=== PATIENT | male | born 1955 | race Caucasian/White ===

== ENCOUNTER 2023-11-29 13:20 | Outpatient (CLI) | payer MEDICARE, MEDICAID | END 2023-11-29 23:59 | disposition home or self-care (01) | LOC: RAD 13:20 | PROVIDERS: ATTEND Radiology Radiation Oncology | DX: R13.10 Dysphagia, unspecified (principal); R49.0 Dysphonia; R47.1 Dysarthria and anarthria; Z85.89 Personal history of malignant neoplasm of other organs and systems | CPT/HCPCS: 74230 ==